=== PATIENT | female | born 1935 | race Caucasian/White ===

== ENCOUNTER 2021-01-17 11:33 | Emergency (ER) | payer MEDICARE, OTHER ==
[~2021-01-17] VITALS: Ht 172.7 cm; Wt 81.6 kg
[2021-01-17] MEDS ORDERED: SODIUM CHLORIDE 0.9% 1,000 ML IV ONE (12:00)
[2021-01-17 12:32] LABS: Anion Gap 7 (5-15); Blood Urea Nitrogen 24 mg/dL (7-18); Carbon Dioxide 23 mmol/L (21-32); Chloride 112 mmol/L (98-107); Glucose 152 mg/dL (74-106); Potassium 4.1 mmol/L (3.5-5.1); Sodium 142 mmol/L (136-145)
[2021-01-17 12:37] LABS: BUN/Creatinine Ratio 15.6; GFR African American 41 mL/min; GFR Non-African American 34 mL/min
[2021-01-17 15:01] VITALS: BP 133/58
== END 2021-01-17 18:47 | disposition home or self-care (01) ==
LOC: ER 11:33 → EDBD 11:33 → ER 18:47
DX: F03.90 Unspecified dementia, unspecified severity, without behavioral disturbance, psychotic disturbance, mood disturbance, and anxiety (principal); I10 Essential (primary) hypertension; K59.00 Constipation, unspecified; R41.82 Altered mental status, unspecified; Z20.822 Contact with and (suspected) exposure to COVID-19
CPT/HCPCS: 36415; 70450; 71045; 80053; 84484; 87426; 93005; 96360; 96361

== ENCOUNTER 2021-03-23 18:43 | Inpatient (IN) | payer MEDICARE ==
[~2021-03-23] VITALS: Ht 165.1 cm; Wt 68.1 kg
[2021-03-23] MEDS ORDERED: SODIUM CHLORIDE 0.9% 500 ML IV ONE (19:00)
[2021-03-23 21:26] LABS: Basophils # (auto) 0 10 ^3/uL (0-0.2); Basophils % (auto) 0.7 % (0.0-2.0); Eosinophils # (auto) 0.1 10 ^3/uL (0-0.8); Eosinophils % (auto) 1.8 % (0.0-7.0); Hematocrit 41.8 % (36.0-46.0); Hemoglobin 13.7 g/dL (12.2-16.2); Lymphocytes # (auto) 1.1 10 ^3/uL (0.4-5.4); Lymphocytes % (auto) 22.9 % (10.0-50.0); Mean Corpuscular Hgb Conc. 32.6 g/dL (32.0-36.0); Mean Corpuscular Volume 91.9 fL (80.0-100.0); Monocytes # (auto) 0.7 10 ^3/uL (0-1.3); Monocytes % (auto) 14.1 % (0.0-12.0); Neutrophils # (auto) 2.9 10 ^3/uL (1.6-8.6); Neutrophils % (auto) 60.5 % (37.0-80.0); Nucleated Red Blood Cells % 0.1 %; Red Blood Cells 4.56 10^6/uL (4.0-5.20); Red Cell Distribution Width 14.4 % (11.8-14.3); White Blood Cell 4.7 10^3/uL (4.4-10.8)
[2021-03-23 21:44] LABS: Albumin 3.1 g/dL (3.4-5.0); Calcium 8.9 mg/dL (8.5-10.1)
[2021-03-23 21:45] LABS: Magnesium 2.6 mg/dL (1.6-2.6)
[2021-03-23] MEDS ORDERED: ACETAMINOPHEN 325 MG TAB PO PRN (21:45)
[2021-03-23] MEDS ORDERED: ONDANSETRON HCL 4 MG/2 ML VIAL IV PRN (21:45)
[2021-03-23 21:49] LABS: BUN/Creatinine Ratio 22.3; Bilirubin, Total 0.6 mg/dL (0.2-1.0); Total Protein 7.2 g/dL (6.4-8.2)
[2021-03-23] MEDS ORDERED: AZITHROMYCIN 500MG/ 250ML 250 ML IV ONE (22:45)
[2021-03-23] MEDS: DONEPEZIL HYDROCHLORIDE 5 MG TAB PO SCH (23:29)
[2021-03-23] MEDS: MEMANTINE HCL 5 MG TAB PO SCH (23:30)
[2021-03-24 05:18] LABS: Urine Bacteria MANY /hpf (None Seen); Urine Blood 2+ /uL (Negative); Urine WBC 2965 /hpf (0 - 5); Urine WBC Clumps PRESENT /hpf (None Seen)
[2021-03-24 07:16] LABS: Hematocrit 40.6 % (36.0-46.0); Hemoglobin 13.5 g/dL (12.2-16.2); Mean Corpuscular Hemoglobin 30.1 pg (28.0-32.0); Mean Corpuscular Hgb Conc. 33.2 g/dL (32.0-36.0); Mean Corpuscular Volume 90.7 fL (80.0-100.0); Red Blood Cells 4.47 10^6/uL (4.0-5.20); Red Cell Distribution Width 14.1 % (11.8-14.3); White Blood Cell 5.5 10^3/uL (4.4-10.8)
[2021-03-24 07:20] LABS: Basophils % (manual) 0 (0.0-2.0); Blast Cells 0; Eosinophils % (manual) 0 (0-7); Metamyelocytes % 0; Myelocytes % 0; Promyelocytes % 0; Reactive Lymphocytes 0
[2021-03-24 07:25] LABS: BUN/Creatinine Ratio 23.8; Calcium 8.2 mg/dL (8.5-10.1); Potassium 4.3 mmol/L (3.5-5.1)
[2021-03-24] MEDS ORDERED: cefTRIAXone 1GM/50ML D5W 50 ML IV SCH (09:00)
[2021-03-24] MEDS ORDERED: ASCORBIC ACID 500 MG TAB PO SCH (10:00)
[2021-03-24] MEDS ORDERED: LOSARTAN POTASSIUM 25 MG TAB PO SCH (10:00)
[2021-03-24] MEDS ORDERED: ZINC SULFATE 220mg CAP or TAB PO SCH (10:00)
[2021-03-24] MEDS ORDERED: PANTOPRAZOLE 40 MG TAB PO SCH (10:00)
[2021-03-24] MEDS: MEMANTINE HCL 5 MG TAB PO SCH (10:34)
[2021-03-24] MEDS: DONEPEZIL HYDROCHLORIDE 5 MG TAB PO SCH (10:35)
[2021-03-24] MEDS ORDERED: SODIUM CHLORIDE 0.9% 1,000 ML IV ONE (11:00)
[2021-03-24 11:15] LABS: Band Neutrophils % (manual) 11; Lymphocytes % (manual) 23 (10.0-50.0); Monocytes % (manual) 12 (0-12)
[2021-03-24] MEDS ORDERED: NOREPINEPHRINE 8 MG/250ML KIT 250 ML IV SCH (11:45)
[2021-03-24] MEDS ORDERED: ERTAPENEM SOD INJ 1 GM in SODIUM CHL 0.9% 50 ML IV ONE (11:45)
[2021-03-24] MEDS ORDERED: SODIUM CHLORIDE 0.9% 250 ML IV ONE (11:45)
[2021-03-24] MEDS: SOD CHL 0.45% 1,000 ML IV SCH (14:13)
[2021-03-24] MEDS ORDERED: AZITHROMYCIN 500MG/ 250ML 250 ML IV SCH (22:00)
[2021-03-24 22:10] VITALS: BP 127/72
[2021-03-24] MEDS ORDERED: LOSA-69 PO (23:44)
[2021-03-24] MEDS ORDERED: MEMA1TAB5 PO (23:46)
[2021-03-24] MEDS ORDERED: DONE5TAB80 PO (23:47)
[2021-03-24] MEDS ORDERED: IBUP1CAP5 PO (23:47)
[2021-03-24] MEDS ORDERED: QUET100T47 PO (23:48)
[2021-03-24] MEDS ORDERED: POLY33504 PO (23:49)
[2021-03-24] MEDS ORDERED: NAPR220C PO (23:51)
[2021-03-25] MEDS: SOD CHL 0.45% 1,000 ML IV SCH ×2 (01:05→08:38)
[2021-03-25 05:04] VITALS: BP 119/60
[2021-03-25 05:57] LABS: Basophils # (auto) 0 10 ^3/uL (0-0.2); Basophils % (auto) 0.6 % (0.0-2.0); Eosinophils # (auto) 0.1 10 ^3/uL (0-0.8); Eosinophils % (auto) 1.3 % (0.0-7.0); Hemoglobin 12.5 g/dL (12.2-16.2); Lymphocytes % (auto) 19.4 % (10.0-50.0); Mean Corpuscular Hemoglobin 30.1 pg (28.0-32.0); Mean Corpuscular Hgb Conc. 32.9 g/dL (32.0-36.0); Mean Corpuscular Volume 91.4 fL (80.0-100.0); Monocytes # (auto) 0.6 10 ^3/uL (0-1.3); Monocytes % (auto) 12.3 % (0.0-12.0); Neutrophils # (auto) 3.4 10 ^3/uL (1.6-8.6); Neutrophils % (auto) 66.4 % (37.0-80.0); Nucleated Red Blood Cells % 0.1 %; Red Blood Cells 4.15 10^6/uL (4.0-5.20); Red Cell Distribution Width 13.9 % (11.8-14.3); White Blood Cell 5.1 10^3/uL (4.4-10.8)
[2021-03-25 06:27] LABS: Potassium 3.9 mmol/L (3.5-5.1)
[2021-03-25 06:42] LABS: BUN/Creatinine Ratio 19.6; Calcium 8.1 mg/dL (8.5-10.1)
[2021-03-25] MEDS: FAMOTIDINE (10MG/ML) 2ML VL IV SCH (08:53)
[2021-03-25 09:00] VITALS: BP 116/60
[2021-03-25 13:00] VITALS: BP 127/71
[2021-03-25] MEDS: ERTAPENEM SOD INJ 1 GM in SODIUM CHL 0.9% 50 ML IV SCH (14:47)
[2021-03-25 17:00] VITALS: BP 125/56
[2021-03-25 22:00] VITALS: BP 124/68
[2021-03-26 05:00] VITALS: BP 139/91
[2021-03-26] MEDS: SOD CHL 0.45% 1,000 ML IV SCH ×2 (05:03→18:17)
[2021-03-26 05:53] LABS: Basophils # (auto) 0 10 ^3/uL (0-0.2); Basophils % (auto) 0.6 % (0.0-2.0); Eosinophils # (auto) 0.1 10 ^3/uL (0-0.8); Eosinophils % (auto) 1.2 % (0.0-7.0); Hematocrit 35.8 % (36.0-46.0); Hemoglobin 12.2 g/dL (12.2-16.2); Lymphocytes # (auto) 0.9 10 ^3/uL (0.4-5.4); Lymphocytes % (auto) 17.1 % (10.0-50.0); Mean Corpuscular Hemoglobin 30.6 pg (28.0-32.0); Mean Corpuscular Hgb Conc. 33.9 g/dL (32.0-36.0); Mean Corpuscular Volume 90.2 fL (80.0-100.0); Monocytes # (auto) 0.6 10 ^3/uL (0-1.3); Neutrophils # (auto) 3.5 10 ^3/uL (1.6-8.6); Neutrophils % (auto) 69.1 % (37.0-80.0); Nucleated Red Blood Cells % 0.1 %; Red Blood Cells 3.97 10^6/uL (4.0-5.20); Red Cell Distribution Width 14.1 % (11.8-14.3); White Blood Cell 5.1 10^3/uL (4.4-10.8)
[2021-03-26 06:28] LABS: Potassium 3.7 mmol/L (3.5-5.1)
[2021-03-26 06:40] LABS: BUN/Creatinine Ratio 16.3; Calcium 8.1 mg/dL (8.5-10.1)
[2021-03-26 09:00] VITALS: BP 132/61
[2021-03-26] MEDS: FAMOTIDINE (10MG/ML) 2ML VL IV SCH (10:33)
[2021-03-26 13:00] VITALS: BP 136/67
[2021-03-26] MEDS: ERTAPENEM SOD INJ 1 GM in SODIUM CHL 0.9% 50 ML IV SCH (15:54)
[2021-03-26 17:00] VITALS: BP 150/67
[2021-03-26] MEDS: Ensure HIGH Protein Chocolate 8oz Bottle PO SCH (18:17)
[2021-03-26 22:00] VITALS: BP 147/71
[2021-03-27 04:55] VITALS: BP 135/63
[2021-03-27 05:20] LABS: Basophils # (auto) 0 10 ^3/uL (0-0.2); Basophils % (auto) 0.8 % (0.0-2.0); Eosinophils # (auto) 0.1 10 ^3/uL (0-0.8); Eosinophils % (auto) 2.1 % (0.0-7.0); Hematocrit 37.2 % (36.0-46.0); Hemoglobin 12.3 g/dL (12.2-16.2); Lymphocytes # (auto) 1.1 10 ^3/uL (0.4-5.4); Lymphocytes % (auto) 20.4 % (10.0-50.0); Mean Corpuscular Hemoglobin 29.6 pg (28.0-32.0); Mean Corpuscular Hgb Conc. 33.1 g/dL (32.0-36.0); Mean Corpuscular Volume 89.4 fL (80.0-100.0); Monocytes # (auto) 0.7 10 ^3/uL (0-1.3); Monocytes % (auto) 13.3 % (0.0-12.0); Neutrophils # (auto) 3.3 10 ^3/uL (1.6-8.6); Neutrophils % (auto) 63.4 % (37.0-80.0); Nucleated Red Blood Cells % 0.1 %; Red Blood Cells 4.16 10^6/uL (4.0-5.20); Red Cell Distribution Width 13.7 % (11.8-14.3); White Blood Cell 5.3 10^3/uL (4.4-10.8)
[2021-03-27 05:40] LABS: Potassium 3.8 mmol/L (3.5-5.1)
[2021-03-27 05:42] LABS: BUN/Creatinine Ratio 15.5; Calcium 8.4 mg/dL (8.5-10.1)
[2021-03-27] MEDS: SOD CHL 0.45% 1,000 ML IV SCH ×2 (06:25→20:29)
[2021-03-27] MEDS: Ensure HIGH Protein Chocolate 8oz Bottle PO SCH ×3 (08:58→17:42)
[2021-03-27] MEDS: FAMOTIDINE (10MG/ML) 2ML VL IV SCH (08:58)
[2021-03-27 09:00] VITALS: BP 130/82
[2021-03-27 13:00] VITALS: BP 147/67
[2021-03-27] MEDS: ERTAPENEM SOD INJ 1 GM in SODIUM CHL 0.9% 50 ML IV SCH (14:00)
[2021-03-27 17:00] VITALS: BP 139/67
[2021-03-27 22:00] VITALS: BP 118/56
[2021-03-28 05:00] VITALS: BP 139/70
[2021-03-28] MEDS: SOD CHL 0.45% 1,000 ML IV SCH ×2 (09:05→23:07)
[2021-03-28 09:34] VITALS: BP 140/78
[2021-03-28] MEDS: Ensure HIGH Protein Chocolate 8oz Bottle PO SCH ×3 (10:57→18:37)
[2021-03-28] MEDS: FAMOTIDINE (10MG/ML) 2ML VL IV SCH (10:57)
[2021-03-28 13:00] VITALS: BP 122/67
[2021-03-28] MEDS: ERTAPENEM SOD INJ 1 GM in SODIUM CHL 0.9% 50 ML IV SCH (15:37)
[2021-03-28 17:00] VITALS: BP 144/88
[2021-03-28 22:04] VITALS: BP 150/72
[2021-03-29 05:00] VITALS: BP 151/69
[2021-03-29 05:47] LABS: Basophils # (auto) 0 10 ^3/uL (0-0.2); Basophils % (auto) 0.8 % (0.0-2.0); Eosinophils # (auto) 0.2 10 ^3/uL (0-0.8); Eosinophils % (auto) 3.6 % (0.0-7.0); Hematocrit 36.4 % (36.0-46.0); Hemoglobin 12.5 g/dL (12.2-16.2); Lymphocytes # (auto) 1.2 10 ^3/uL (0.4-5.4); Lymphocytes % (auto) 21.9 % (10.0-50.0); Mean Corpuscular Hemoglobin 30.3 pg (28.0-32.0); Mean Corpuscular Hgb Conc. 34.3 g/dL (32.0-36.0); Mean Corpuscular Volume 88.4 fL (80.0-100.0); Monocytes # (auto) 0.7 10 ^3/uL (0-1.3); Monocytes % (auto) 13.6 % (0.0-12.0); Neutrophils # (auto) 3.2 10 ^3/uL (1.6-8.6); Neutrophils % (auto) 60.1 % (37.0-80.0); Nucleated Red Blood Cells % 0.1 %; Red Blood Cells 4.12 10^6/uL (4.0-5.20); Red Cell Distribution Width 13.7 % (11.8-14.3); White Blood Cell 5.4 10^3/uL (4.4-10.8)
[2021-03-29 05:58] LABS: INR 1.13 (0.9-1.15); Partial Thromboplastin Time 32.4 sec (23.6-33.0)
[2021-03-29 06:07] LABS: Potassium 3.5 mmol/L (3.5-5.1)
[2021-03-29 06:15] LABS: Albumin 2.1 g/dL (3.4-5.0); BUN/Creatinine Ratio 17.8; Bilirubin, Total 0.4 mg/dL (0.2-1.0); Calcium 8.3 mg/dL (8.5-10.1); Magnesium 2.3 mg/dL (1.6-2.6); Phosphorus 2.4 mg/dL (2.5-4.90); Total Protein 6.1 g/dL (6.4-8.2)
[2021-03-29 08:15] VITALS: BP 151/77
[2021-03-29 08:30] VITALS: BP 151/77
[2021-03-29] MEDS: Ensure HIGH Protein Chocolate 8oz Bottle PO SCH ×2 (09:42→13:18)
[2021-03-29] MEDS: FAMOTIDINE (10MG/ML) 2ML VL IV SCH (09:43)
[2021-03-29] MEDS: SOD CHL 0.45% 1,000 ML IV SCH ×2 (11:45→12:20)
[2021-03-29 12:30] VITALS: BP 156/81
[2021-03-29] MEDS ORDERED: LOSARTAN POTASSIUM 50 MG TAB PO ONE (13:00)
[2021-03-29] MEDS: ERTAPENEM SOD INJ 1 GM in SODIUM CHL 0.9% 50 ML IV SCH (13:41)
[2021-03-29 17:00] VITALS: BP 128/92
[2021-03-29 20:00] VITALS: BP 135/85
[2021-03-29] MEDS: DONEPEZIL HYDROCHLORIDE 5 MG TAB PO SCH (21:54)
[2021-03-29] MEDS: MEMANTINE HCL 5 MG TAB PO SCH (21:54)
[2021-03-30] VITALS (7 sets, daily range): BP systolic 140–152; BP diastolic 71–104
[2021-03-30] MEDS: Ensure HIGH Protein Chocolate 8oz Bottle PO SCH ×3 (08:35→18:00)
[2021-03-30] MEDS ORDERED: MEMANTINE HCL 5 MG TAB PO SCH (10:00)
[2021-03-30] MEDS: MEMANTINE HCL 5 MG TAB PO SCH ×2 (10:04→22:00)
[2021-03-30] MEDS: LOSARTAN POTASSIUM 50 MG TAB PO SCH (10:05)
[2021-03-30] MEDS: ERTAPENEM SOD INJ 1 GM in SODIUM CHL 0.9% 50 ML IV SCH (15:03)
[2021-03-30] MEDS: DONEPEZIL HYDROCHLORIDE 5 MG TAB PO SCH (22:00)
[2021-03-31 04:58] VITALS: BP 131/70
[2021-03-31] MEDS: Ensure HIGH Protein Chocolate 8oz Bottle PO SCH (08:32)
[2021-03-31 08:37] VITALS: BP 109/76
[2021-03-31] MEDS: MEMANTINE HCL 5 MG TAB PO SCH (09:47)
[2021-03-31] MEDS: LOSARTAN POTASSIUM 50 MG TAB PO SCH (09:47)
[2021-03-31 12:34] VITALS: BP 123/58
== END 2021-03-31 12:40 | disposition hospice, home (50) | DRG 871 ==
LOC: EDBD 18:43 → ER 18:46 → OVERFLOW 21:36 → TELE-EAST 03-24 22:02 → OVERFLOW 03-24 22:02 → TELE-EAST 03-24 22:10
PROVIDERS: ADMIT Nurse Practitioner; ATTEND Internal Medicine
PROC: 06HM33Z Insertion of Infusion Device into Right Femoral Vein, Percutaneous Approach (ICD-10-PCS; principal; 2021-03-24)
DX: A41.9 Sepsis, unspecified organism (principal); U07.1 COVID-19; R65.21 Severe sepsis with septic shock; N17.0 Acute kidney failure with tubular necrosis; G92.8 Other toxic encephalopathy; E87.0 Hyperosmolality and hypernatremia; N39.0 Urinary tract infection, site not specified; R62.7 Adult failure to thrive; E87.8 Other disorders of electrolyte and fluid balance, not elsewhere classified; F03.90 Unspecified dementia, unspecified severity, without behavioral disturbance, psychotic disturbance, mood disturbance, and anxiety; Z66 Do not resuscitate; D69.6 Thrombocytopenia, unspecified; L89.92 Pressure ulcer of unspecified site, stage 2; I10 Essential (primary) hypertension; Z51.5 Encounter for palliative care
CPT/HCPCS: 36415; 70450; 71045; 80048; 80053; 81001; 82607; 82728; 83735; 84100; 84443; 84484; 85007; 85025; 85027; 85379; 85610; 85730; 87086; 87426; 93005; 93306; 96365; 96367; 97110; 97530; G0378; J0696; J1335; J3490